=== PATIENT | female | born 1955 | race Caucasian/White ===

== ENCOUNTER → 2021-02-13 | Outpatient (CLI) | payer OTHER ==
[~2021-02-13] MED LIST: LIPITOR TAB 1010 MG PO; LISINOPRIL20 MG PO; MONTELUKAST SOD10 MG PO
[2021-02-13 10:47] LABS: HEMOGLOBIN 12.1 gm/dl (12.3-15.3); RED BLOOD COUNT 4.2 M/UL (4.00-5.10); WHITE BLOOD COUNT 7.6 K/UL (4.5-11.0)
== END ==
LOC: OPSV2 09:30
PROVIDERS: Obstetrics & Gynecology
DX: Z01.812 Encounter for preprocedural laboratory examination (principal); N81.9 Female genital prolapse, unspecified
CPT/HCPCS: 80053; 81001; 85025

== ENCOUNTER 2021-02-19 09:14 | Day surgery (SDC) | payer OTHER ==
[~2021-02-19] VITALS: Ht 160 cm; Wt 65.8 kg
[2021-02-20 08:46] LABS: HEMOGLOBIN 11.4 gm/dl (12.3-15.3)
== END 2021-02-20 11:10 | disposition home or self-care (01) ==
LOC: OR 09:14 → MED SURG 4 09:14 → EDSTATUS 12:30 → OR 12:30 → MED SURG 4 19:47 → OR 02-20 11:10
PROVIDERS: Obstetrics & Gynecology
DX: N72 Inflammatory disease of cervix uteri (principal); N87.9 Dysplasia of cervix uteri, unspecified; N80.0 Endometriosis of uterus; D25.1 Intramural leiomyoma of uterus; N81.9 Female genital prolapse, unspecified; N39.46 Mixed incontinence; N81.4 Uterovaginal prolapse, unspecified; N88.8 Other specified noninflammatory disorders of cervix uteri; N83.332 Acquired atrophy of left ovary and fallopian tube; N83.331 Acquired atrophy of right ovary and fallopian tube; N95.2 Postmenopausal atrophic vaginitis; K63.89 Other specified diseases of intestine; I10 Essential (primary) hypertension; J44.9 Chronic obstructive pulmonary disease, unspecified; F17.200 Nicotine dependence, unspecified, uncomplicated
CPT/HCPCS: 36415; 71045; 85014; 85018; 93005; C1769; J0690; J1100; J1170; J2001; J2250; J2405; J3010; J7030; J7040; J7050; J7120

== ENCOUNTER 2021-09-26 02:29 | Emergency (ER) | payer OTHER ==
[2021-09-26 03:13] LABS: HEMOGLOBIN 12.7 gm/dl (12.3-15.3); RED BLOOD COUNT 4.23 M/UL (4.00-5.10); WHITE BLOOD COUNT 16.2 K/UL (4.5-11.0)
[2021-09-26] MEDS ORDERED: MACROBID 100 M100 MG PO (05:23)
[2021-09-26] MEDS ORDERED: PYRIDIUM200 MG PO (05:23)
== END 2021-09-26 05:40 | disposition home or self-care (01) ==
LOC: ER1 02:29
PROVIDERS: Family Medicine
DX: N39.0 Urinary tract infection, site not specified (principal); R31.9 Hematuria, unspecified; I10 Essential (primary) hypertension; F17.210 Nicotine dependence, cigarettes, uncomplicated
CPT/HCPCS: 80053; 81001; 83690; 85025; 87086; 99283